=== PATIENT | female | born 1970 | race Caucasian/White ===

== ENCOUNTER 2018-06-18 09:19 | Emergency (ER) | payer SELFPAY ==
[~2018-06-18] VITALS: Ht 157.5 cm; Wt 84.0 kg
[2018-06-18 09:23] VITALS: RESP 18; Ht 157.5 cm; Wt 84.0 kg
[2018-06-18] MEDS ORDERED: KETOROLAC 60 MG INJ IM STA (11:08)
--- NOTE | 2018-06-18 11:14 | ERD ---
ER Documentation Chief Complaint Chief Complaint pt is bib self with c/o head, eye and ear pain HPI 48-year-old female presents with complaint of neck pain for the past month. States that when she turns her neck the pain radiates to the side of her forehead and her eye. She has been to several doctors for this and they have all stated that she has inflammation and she is been taking ibuprofen. Denies orse headache of life, fever, rash, headache getting worse with change in position, headache initiated by exertion, BURCH worse in the morning, BURCH waking up patient at night, new neurological deficits, numbness, weakness, vision problems, tenderness to palpation over temporal area, history of trauma, or possibility of CO2 poisoning. Denies past medical history. Denies allergies. Denies surgeries. Eric alcohol, tobacco, drug use. Up to date on vaccines. ROS All systems reviewed and are negative except as per history of present illness. Medications Home Meds Active Scripts Cyclobenzaprine Hcl* (Cyclobenzaprine Hcl*) 10 Mg Tablet, 10 MG PO TID for pain, #15 TAB Prov:OLIVER JOHNS 06/18/18 Ibuprofen* (Motrin*) 600 Mg Tab, 600 MG PO Q6 for pain, #30 TAB Prov:OLIVER JOHNS 06/18/18 Allergies Allergies: Coded Allergies: Penicillins (Verified Allergy, Unknown, 06/18/18) PMhx/Soc Medical and Surgical Hx: pt denies Medical Hx History of Surgery: Yes (C/S) Anesthesia Reaction: No Hx Alcohol Use: No Hx Substance Use: No Hx Tobacco Use: No Smoking Status: Never smoker FmHx Family History: No diabetes, No coronary disease, No other Physical Exam Vitals Vital Signs Date Temp Pulse Resp B/P (MAP) Pulse Ox O2 O2 Flow FiO2 Time Delivery Rate 06/18/18 56 174/87 13:50 (116) 06/18/18 98.3 84 18 182/96 98 09:23 (124) Physical Exam Const: No acute distress Head: Atraumatic No temporal tenderness or pulsations noted. Eyes: Normal Conjunctiva ENT: Normal External Ears, Nose and Mouth. Rotation of neck elicits pain. There is no midline tenderness or bony deformity noted. Normal flexion and extension. No masses noted. Neck: Full range of motion. No meningismus. Resp: Clear to auscultation bilaterally Cardio: Regular rate and rhythm, no murmurs Abd: Soft, non tender, non distended. Normal bowel sounds Skin: No petechiae or rashes Back: No midline or flank tenderness Ext: No cyanosis, or edema Neur: Awake and alert Psych: Normal Mood and Affect Neuro: M/S: Alert and oriented Face: EOMI, face and pharynx with normal sensation and function Motor: Normal strength throughout Sensation: Normal sensation throughout Speech: Normal Cerebel: Normal coordination Normal gait Normal finger to nose DTR: 2+ and symmetric upper/lower extremities Result Diagram: 06/18/18 1132 Results 24 hrs Laboratory Tests Test 06/18/18 11:20 06/18/18 11:32 POC Beta HCG, Qualitative NEGATIVE White Blood Count 6.7 10^3/ul Red Blood Count 4.63 10^6/ul Hemoglobin 13.8 g/dl Hematocrit 41.6 % Mean Corpuscular Volume 89.8 fl Mean Corpuscular Hemoglobin 29.8 pg Mean Corpuscular Hemoglobin Concent 33.2 g/dl Red Cell Distribution Width 12.6 % Platelet Count 256 10^3/UL Mean Platelet Volume 11.2 fl Immature Granulocytes % 0.300 % Neutrophils % 63.4 % Lymphocytes % 27.8 % Monocytes % 6.4 % Eosinophils % 1.5 % Basophils % 0.6 % Nucleated Red Blood Cells % 0.0 /100WBC Immature Granulocytes # 0.020 10^3/ul Neutrophils # 4.2 10^3/ul Lymphocytes # 1.9 10^3/ul Monocytes # 0.4 10^3/ul Eosinophils # 0.1 10^3/ul Basophils # 0.0 10^3/ul Nucleated Red Blood Cells # 0.0 10^3/ul Current Medications Medications Dose Sig/Nimesh Start Time Status Last (Trade) Ordered Route PRN Stop Time Admin Dose Reason Admin Ketorolac 60 mg ONCE STAT 06/18/18 DC 06/18/18 Tromethamine IM 11:08 06/18/18 11:28 (Toradol) 11:11 Tetracaine 1 drop ONCE ONCE 06/18/18 DC 06/18/18 HCl BOTH EYES 11:30 06/18/18 11:28 (Tetracaine 11:31 0.5% Steri-Unit Marita) Procedures/MDM DIAGNOSTIC IMAGING REPORT Patient: ADELAIDE WRIGHT : 1970 Age: 48 Sex: F MR #: [id number] DOS: 06/18/18 1108 Ordering MD: OLIVER JOHNS Location: [facility] Room/Bed: PROCEDURE: XR Cervical Spine. CLINICAL INDICATION: Neck pain 1 month TECHNIQUE: AP, lateral, and odontoid views of the cervical spine were obtained. COMPARISON: None. FINDINGS: No fracture is identified. The vertebral bodies are maintained in height. There is preservation of the lordosis of the cervical spine. Alignment is intact. The intervertebral discs are maintained in height. There are mild anterior osteophytes at C5-6. The prevertebral soft tissues are unremarkable. IMPRESSION: No fracture identified. Mild cervical spondylosis/degenerative enthesopathy as described above. RPTAT: VV .Ernesto Magana MD, Date Time Electronically viewed and signed by .Ernesto Magana MD, on 06/18/2018 12:02 .O/ CC: OLIVER JOHNS [phone] MDM: Patient given pain medication in the ER and headache was resolved. I advised patient to follow-up with her primary care regarding the neck pain as according to the x-ray she has some degenerative changes in the neck which could be contributing to it. Milton-Pen test was within normal limits her visual acuity was off so I told her she need to follow-up with ophthalmology. Patient agreed to do so. I have low suspicion for intracranial hemorrhage, elevated intracranial pressure, intracranial mass, aneurysm, meningitis, malignant hypertension, giant cell arteritis, carotid dissection, intracranial abscess, cerebral venous thrombosis, CO2 poisoning, or other emergent causes of headache based on patients history and exam. Patient discharged with strict ER precautions. Patient advised to follow up with PMD. All questions answered at discharge. Departure Diagnosis: Primary Impression: Neck pain Condition: Stable OLIVER JOHNS June 18, 2018 11:14
[2018-06-18] MEDS ORDERED: TETRACAINE 0.5% 4 ML OPH BOTH EYES ONE (11:30)
[2018-06-18] MEDS ORDERED: CYCL10TA7 PO (13:28)
[2018-06-18] MEDS ORDERED: IBUP-1542 PO (13:28)
[2018-06-18 13:50] VITALS: BP 174/87; PULSE 56
== END 2018-06-18 13:53 | disposition home or self-care (01) ==
LOC: FTE 09:19
DX: M54.2 Cervicalgia (principal)
CPT/HCPCS: 72040; 81025; 85025; 96372; 99284; J1885